=== PATIENT | male | born 1965 | race Caucasian/White ===

== ENCOUNTER 2020-08-13 06:32 | Outpatient (CLI) | payer OTHER, SELFPAY ==
--- NOTE | ~2020-08-13 | MR_ITS ---
EXAMINATION: MR abdomen wo/w con INDICATION: Kidney mass TECHNIQUE: Coronal SSFSE ARC, WATER:coronal LAVA-FLEX, Coronal 2D FIESTA FatSat, Axial SSFSE BH ARC, Axial 3D DualEcho BH, Axial SSFSE-IR, Axial DWI b=500, Axial 2D FIESTA FatSat, pre and dynamic postco ntrast Axial LAVA ARC, postcontrast Coronal In and Opposed phase LAVA FLEX COMPARISON: None available CONTRAST: Multihance, 16 cc FINDINGS: The heart size is normal. There is a 4 mm cyst in the right hepatic lobe. The spleen, pancr eas, gallbladder, and adrenal glands are normal. There is a 1.3 cm T1 isointense, mixed T2 signal int ensity mass in the posteromedial aspect of the right mid kidney which demonstrates enhancement of the solid components after contrast administration. The left kidney is unremarkable. No pathologically e nlarged abdominal lymph nodes are identified. There are no dilated loops of bowel. There is a 1.7 cm T1 isointense, mildly T2 hyperintense, nonenhancing lesion in the left aspect of the T9 vertebral bod y. IMPRESSION: 1. 1.3 cm right kidney mass concerning for renal cell carcinoma. 2. 1.7 cm lesion of the T9 vertebral body which likely represents an atypical hemangioma, particularl y given the relatively small size of the right kidney mass and absence of other known malignancy like ly to metastasize to bone. Reviewed, dictated and finalized at location A. IMPRESSION: 1. 1.3 cm right kidney mass concerning for renal cell carcinoma. 2. 1.7 cm lesion of the T9 vertebral body which likely represents an atypical h emangioma, particularly given the relatively small size of the right kidney mas s and absence of other known malignancy likely to metastasize to bone.
[2020-08-13 07:08] LABS: Estimated Glomerular Filt Rate > 60
== END 2020-08-13 06:33 | disposition home or self-care (01) ==
LOC: ANHIMG 06:44
PROVIDERS: PCP Urology; Visit Provider Urology
DX: N28.89 Other specified disorders of kidney and ureter (principal)
CPT/HCPCS: 74183; A9577

== ENCOUNTER 2020-08-27 10:26 | Outpatient (CLI) | payer OTHER, SELFPAY ==
--- NOTE | ~2020-08-27 | US_ITS ---
EXAMINATION: US retroperitoneal comp DATE: 08/27/2020 11:10 INDICATION: Kidney mass. TECHNIQUE: Multiple ultrasound grayscale images of the kidneys were obtained. COMPARISON: Abdomen MRI 08/13/2020 FINDINGS: The right kidney measures 11.7 x 7.1 x 5.3 cm. The left kidney measures 10.3 x 5.4 x 5.6 cm. The kidn eys demonstrate normal parenchymal echogenicity. There is a 13 mm hyperechoic and isoechoic mass in r ight kidney. There is no hydronephrosis. The bladder is normal. IMPRESSION: 1. 13 mm right kidney mass correlating with the enhancing mass seen by MRI suspicious for renal cell carcinoma. Reviewed, dictated and finalized at location A. IMPRESSION: 1. 13 mm right kidney mass correlating with the enhancing mass seen by MRI dwayne picious for renal cell carcinoma.
== END 2020-08-27 10:27 | disposition home or self-care (01) ==
PROVIDERS: Visit Provider Urology
DX: N28.89 Other specified disorders of kidney and ureter (principal)
CPT/HCPCS: 76770

== ENCOUNTER 2020-12-17 14:36 | Outpatient (CLI) | payer OTHER, SELFPAY ==
--- NOTE | 2020-12-17 14:39 | ECG_ITS ---
Measurements Intervals [place] Rate: 53 P: 44 [place]: 197 QRS: 13 QRSD: 105 T: 38 QT: 403 QTc: 381 Interpretive Statements SINUS BRADYCARDIA INCOMPLETE RIGHT BUNDLE BRANCH BLOCK DELAYED PRECORDIAL R/S TRANSITION BORDERLINE ECG Electronically Signed On 12-17-2020 14:53:10 ACCIDENT INVESTIGATOR by Asa Vivas D.O.
[2020-12-17 15:07] LABS: Basophils Absolute Auto 0.1 K/mm3 (0.0-0.1); Basophils Percent Auto 1.1 % (0.2-1.2); Eosinophils Absolute Auto 0.1 K/mm3 (0-0.3); Eosinophils Percent Auto 0.8 % (0-4.4); Hematocrit 50.1 % (42.0-52.0); Hemoglobin 17.1 g/dL (14.0-18.0); Immature Granulocyte Absolute 0.01 K/mm3 (0.00-0.031); Immature Granulocyte Percent A 0.2 % (0-0.5); Lymphocytes Absolute Auto 1.39 K/mm3 (0.9-3.2); Lymphocytes Percent Auto 22.3 % (18.3-44.2); Mean Corpuscular HGB Conc 34.1 g/dl (32-36); Mean Corpuscular Volume 90.9 fl (80-100); Mean Platelet Volume 9.8 fl (7.4-10.4); Monocytes Absolute Auto 0.5 K/mm3 (0.1-0.6); Monocytes Percent Auto 7.6 % (2.6-8.5); Neutrophils Absolute Auto 4.2 K/mm3 (1.3-6.7); Platelet Count Result 242 k/mm3 (150-375); Red Blood Count 5.51 M/mm3 (4.6-6.20); Red Cell Distribution Width 12.1 % (11.5-14.5); White Blood Count 6.2 K/mm3 (4.5-10.0)
[2020-12-17 15:15] LABS: Anion Gap 2 mmol/L (8-16); Blood Urea Nitrogen 14 mg/dL (9-20); Calcium 9.1 mg/dL (8.4-10.2); Carbon Dioxide 32 mmol/L (22-30); Chloride 105 mmol/L (98-107); Estimated Glomerular Filt Rate > 60; Glucose 113 mg/dL (75-110); INR 0.9; Potassium 3.9 mmol/L (3.4-5.0); Prothrombin Time 13.2 Seconds (11.1-14.7); Sodium 139 mmol/L (137-145)
[2020-12-17 15:16] LABS: Partial Thromboplastin Time 31.5 SECONDS (22.3-36.8)
== END 2020-12-17 14:37 | disposition home or self-care (01) ==
LOC: ANHSURGERY 14:39
PROVIDERS: PCP Family Medicine; Visit Provider Urology
DX: C67.9 Malignant neoplasm of bladder, unspecified (principal); I10 Essential (primary) hypertension; Z01.812 Encounter for preprocedural laboratory examination; I45.10 Unspecified right bundle-branch block
CPT/HCPCS: 36415; 80048; 85025; 85610; 85730; 87086; 93005

== ENCOUNTER → 2020-12-21 05:49 | Outpatient (CLI) | payer OTHER, SELFPAY ==
[2020-12-21 19:10] LABS: SARS-CoV-2 RNA PCR Negative
== END ==
PROVIDERS: PCP Family Medicine; Visit Provider Urology
DX: Z01.812 Encounter for preprocedural laboratory examination (principal); Z20.822 Contact with and (suspected) exposure to COVID-19
CPT/HCPCS: C9803; U0003; U0005

== ENCOUNTER 2020-12-24 00:43 | Day surgery (SDC) | payer OTHER, SELFPAY ==
[2020-12-17 13:16] VITALS: BMI 25.0
[2020-12-24 11:28] VITALS: BMI 25.4
[2020-12-24 11:29] VITALS: BP 108/74; PULSE 53; RESP 16; TEMP 36.8; O2SAT 100
[2020-12-24] MEDS: LACTATED RINGERS 1,000 ML 30 ML IV CONT (11:47)
[2020-12-24 11:53] LABS: Glucose Point of Care 110 (65-105)
--- NOTE | 2020-12-24 12:01 | WPDANESEPPF ---
Anes - Initial Pre Proc Eval Procedure: Operation Date: 12/24/20 13:00 Proposed Procedures p Cystoscopy Bladder Biopsy - Arnulfo Rincon MD s Trans Urethral Resection Bladder Tumor - Arnulfo Rincon MD Date/Time: 12/24/20 12:01 Surgeon: Arnulfo Rincon MD Pre Op Diagnosis: Bladder CA Patient Data Age: 55 Gender: M Height: 6 ft Weight: 84.9 kg Last Vital Signs Temp 98.3 F 12/24/20 11:29 Pulse 53 L 12/24/20 11:29 Resp 16 12/24/20 11:29 BP 108/74 12/24/20 11:29 Pulse Ox 100 12/24/20 11:29 Allergies Allergy/AdvReac Type Severity Reaction Status Date / Time No Known Allergies Allergy Verified 12/24/20 11:12 Home Medications Medication Instructions Recorded Confirmed Type empagliflozin-metformin [Synjardy 1 tablet PO DAILY 12/24/20 12/24/20 History XR] lisinopril 20 mg PO HS 12/24/20 12/24/20 History rosuvastatin 10 mg PO HS 12/24/20 12/24/20 History vortioxetine [Trintellix] 10 mg PO HS 12/24/20 12/24/20 History Laboratory Tests 12/24/20 11:45 POC Capillary Glucose 110 mg/dl mg/dl (65-105) Patient hx anesthesia problems: none Family hx anesthesia problems: none PMFSH Past Medical History Medical History (Updated 12/24/20 @ 12:01 by Ezequiel Diaz MD) Bladder tumor Diabetes Hyperlipidemia Hypertension Social History Social History Smoking status: Never smoker Living arrangements: with family Gender identity (if verbalized by the patient): Male Spiritual care concerns: No Anes - Eval Final PreProcedure Day of Procedure 12/24/20 12:01 Patient weight: normal Heart: regular rate and rhythm Lungs: clear to auscultation Airway: Mallampati scale class II Neurological: alert and oriented Last oral intake: >/= 8 hours ASA classification: III Emergent: no Anesthetic plan: proceed Anesthesia type and monitoring: general LMA and standard monitoring Informed Consent: The patient's anesthetic plan and its attendant risks and benefits were discussed with the patient/family/POA. Questions were solicited and answers provided to the satisfaction of the patient/family/POA.
--- NOTE | 2020-12-24 13:16 | WPDHPUPDATE1 ---
History and Physical Update Update Date/Time: 12/24/20 13:16 History and Physical has been reviewed, including an updated exam of the patient. There are NO changes in the patient's condition. Risks, benefits, and alternatives have been discussed and questions answered. Patient agrees to proceed with procedure.
[2020-12-24] MEDS: ceFAZolin 2 GM/D5W 50 ML 2 GM/50 ML BAG IVPB (13:43)
[2020-12-24] MEDS: LIDOCAINE HCL 2% GEL UROJET 10 ML PKG MUCOUS MEM (14:14)
--- NOTE | 2020-12-24 14:17 | PM.PROC ---
Procedure Note - Detailed Date of procedure: 12/24/20 Pre-op diagnosis: Bladder CA Post-op diagnosis: same Procedure performed: Cystoscopy with bladder biopsy and fulguration. Combined size of tumors medium-3 distinct tumors adding up to 2 cm. Description of procedure: Patient is taken the operative suite and correctly identified. Once anesthesia was obtained he was placed in dorsal lithotomy position prepped and draped usual sterile fashion. Nineteen Arabic scope was inserted the bladder. He has approximately 3 lesions noted near the dome of the bladder. Using a cold cup biopsy we retrieve these. We then fulgurated the base. There was good hemostasis at termination procedure. 2% viscous lidocaine was inserted into urethra. Patient is taken recovery room stable condition. Will call for path results in 1 week's time. The Anesthesia: GLMA Surgeon: Arnulfo Rincon MD Drains: No Packing: No Pathology: yes Complications: No immediate complications Condition: stable Disposition: PACU
[2020-12-24 14:21] VITALS: BP 96/61; PULSE 56; RESP 16; TEMP 36.4; O2SAT 98
[2020-12-24 14:29] LABS: Glucose Point of Care 104 (65-105)
[2020-12-24 14:35] VITALS: BP 105/72; PULSE 78; RESP 20; O2SAT 98
[2020-12-24 14:48] VITALS: BP 111/66; PULSE 55
[2020-12-24 15:20] VITALS: BP 114/64; PULSE 52
== END 2020-12-24 15:45 | disposition home or self-care (01) ==
PROVIDERS: PCP Family Medicine; Visit Provider Urology
PROC: 0TBB8ZX Excision of Bladder, Via Natural or Artificial Opening Endoscopic, Diagnostic (ICD-10-PCS; CPT 52204; principal; 2020-12-24 13:00)
DX: C67.1 Malignant neoplasm of dome of bladder (principal); I10 Essential (primary) hypertension; E78.5 Hyperlipidemia, unspecified; E11.9 Type 2 diabetes mellitus without complications; Z79.84 Long term (current) use of oral hypoglycemic drugs
CPT/HCPCS: 52204; 82948; 88305; A9270; J0690; J2250; J2405; J2704; J3010; J7120

== ENCOUNTER 2021-12-10 07:52 | Outpatient (CLI) | payer OTHER, SELFPAY ==
[2021-12-10 09:12] LABS: Basophils Absolute Auto 0.1 K/mm3 (0.0-0.1); Eosinophils Absolute Auto 0.1 K/mm3 (0-0.3); Eosinophils Percent Auto 1.8 % (0-4.4); Hematocrit 50.8 % (42.0-52.0); Hemoglobin 17.4 g/dL (14.0-18.0); Immature Granulocyte Absolute 0.01 K/mm3 (0.00-0.031); Immature Granulocyte Percent A 0.2 % (0-0.5); Lymphocytes Percent Auto 32.1 % (18.3-44.2); Mean Corpuscular HGB Conc 34.3 g/dl (32-36); Mean Corpuscular Hemoglobin 30.5 pg (26-34); Mean Corpuscular Volume 89.1 fl (80-100); Mean Platelet Volume 10.4 fl (7.4-10.4); Monocytes Absolute Auto 0.4 K/mm3 (0.1-0.6); Neutrophils Absolute Auto 2.8 K/mm3 (1.3-6.7); Neutrophils Percent Auto 56.9 % (45.5-73.1); Platelet Count Result 202 k/mm3 (150-375); Red Cell Distribution Width 12.2 % (11.5-14.5)
[2021-12-10 09:26] LABS: Anion Gap 7 mmol/L (8-16); Blood Urea Nitrogen 14 mg/dL (9-20); Calcium 9.5 mg/dL (8.4-10.2); Carbon Dioxide 28 mmol/L (22-30); Chloride 103 mmol/L (98-107); Estimated Glomerular Filt Rate > 60; Glucose 131 mg/dL (65-110); Sodium 138 mmol/L (137-145)
[2021-12-10 09:51] LABS: INR 0.9; Prothrombin Time 12.2 Seconds (11.1-14.7)
[2021-12-10 09:52] LABS: Partial Thromboplastin Time 31.1 SECONDS (22.3-36.8)
== END 2021-12-10 07:53 | disposition home or self-care (01) ==
LOC: ANHSURGERY 07:58
PROVIDERS: PCP Family Medicine; Visit Provider Urology
DX: C67.9 Malignant neoplasm of bladder, unspecified (principal); Z01.818 Encounter for other preprocedural examination
CPT/HCPCS: 36415; 80048; 85025; 85610; 85730; 87086

== ENCOUNTER 2021-12-16 00:37 | Day surgery (SDC) | payer OTHER, SELFPAY ==
[2021-12-03 14:43] VITALS: BMI 25.7
--- NOTE | 2021-12-03 14:46 | PC.NURSE ---
Report to the Outpatient Waiting Room, entrance under the green pavilion located off [facility], at time _0800_ on date _12/16/21_. OR Time: _1000_. - You will be asked a series of questions to screen for COVID 19 for your protection. - A mask is required within the hospital. - No visitors are allowed at this time. Preoperative COVID Testing Requirements: Patients may have clear liquids (water, carbonated beverages, clear teas, apple juice) until 3 hours prior to surgery with a maximum of 20 ounces. - No food from midnight until time of surgery Take the following medications with a SIP of water the morning of surgery: _TRINTELLIX_ Medications to discontinue per physician _N/A__ Please no make-up, nail libyan, hairspray, perfume, deodorant, or body powder the day of surgery. No jewelry (including any body piercings) or valuables the day of surgery, leave them at home. Please take a shower or bath the night before, or the morning of, surgery with an antibacterial soap. Wear comfortable, loose fitting clothing. Children are encouraged to wear pajamas. - Jewelry must be removed prior to entering the operating room. Rings and piercings that are not removed may be cut off. - The hospital will not accept responsibility for valuables. - Please leave all valuables, including medications, at home the day of surgery. If you are going home after surgery, a licensed delivery driver must drive you home. - NO public transportation without another adult. - We recommend that an adult stay with you for 24 hours following discharge. - We also recommend that you do not drive, make important decision, drink alcoholic beverages, or take any drugs that were not prescribed by your health care provider for at least 24 hours after your discharge time. Follow any additional instructions given to you from your surgeon. Telephone instructions given to ____PT and asked if any additional questions and then verbalized understanding. Patient advised to call surgeon office or pre surgery nurse liaison [phone] if any additional questions.
[2021-12-16] VITALS (7 sets, daily range): BP systolic 96–141; BP diastolic 71–82; PULSE 45–59; RESP 8–20; TEMP 36.1–36.4; O2SAT 99–100
[2021-12-16] MEDS: LACTATED RINGERS 1,000 ML 30 ML IV CONT (07:10)
[2021-12-16 07:28] LABS: Glucose Point of Care 120 mg/dl (65-105)
--- NOTE | 2021-12-16 07:30 | WPDHPUPDATE1 ---
History and Physical Update Update Date/Time: 12/16/21 07:30 History and Physical has been reviewed, including an updated exam of the patient. There are NO changes in the patient's condition. Risks, benefits, and alternatives have been discussed and questions answered. Patient agrees to proceed with procedure. Proceed with cysto, bladder biopsy, possible turbt
--- NOTE | 2021-12-16 07:59 | WPDANESEPPF ---
Anes - Initial Pre Proc Eval Procedure: Operation Date: 12/16/21 08:30 Proposed Procedures p Cystoscopy, Bladder Biopsy - Arnulfo Rincon MD s Trans Urethral Resection of Bladder Tumor with Fulguration - Arnulfo Rincon MD Date/Time: 12/16/21 07:59 Surgeon: Arnulfo Rincon MD Pre Op Diagnosis: [place] neoplasm of Bladder Wall Patient Data Age: 56 Gender: M Height: 1.83 m Weight: 88.4 kg Last Vital Signs Temp 36.4 C 12/16/21 07:32 Pulse 54 L 12/16/21 07:32 Resp 20 12/16/21 07:32 BP 112/80 12/16/21 07:32 Pulse Ox 100 12/16/21 07:32 Allergies Allergy/AdvReac Type Severity Reaction Status Date / Time No Known Allergies Allergy Verified 12/16/21 07:17 Home Medications Medication Instructions Recorded Confirmed Type Synjardy XR 1 tablet PO QAM 12/24/20 12/16/21 History Trintellix 10 mg PO QAM 12/24/20 12/16/21 History lisinopril 20 mg PO QAM 12/24/20 12/16/21 History rosuvastatin 10 mg PO QAM 12/24/20 12/16/21 History Laboratory Tests 12/16/21 07:25 POC Capillary Glucose 120 mg/dl H mg/dl (65-105) Patient hx anesthesia problems: none Family hx anesthesia problems: none Results Review: All pre-operative results and documents have been reviewed as part of the pre-operative evaluation. [facility] Past Medical History Medical History Bladder tumor Diabetes Hyperlipidemia Hypertension Surgical History Surgical History (Updated 12/16/21 @ 07:59 by Natan Ivy MD) Hx of cystoscopy Social History Social History Smoking status: Never smoker Second hand tobacco smoke exposure: No Alcohol intake: current Drinks per week: 14 Substance use: never Substance use type: does not use Living arrangements: with family Gender identity (if verbalized by the patient): Male Spiritual care concerns: No Anes - Eval Final PreProcedure Day of Procedure 12/16/21 07:59 Patient weight: overweight Heart: regular rate and rhythm Lungs: clear to auscultation Airway: Mallampati scale class II Neurological: alert and oriented Last oral intake: >/= 8 hours ASA classification: III Emergent: no Anesthetic plan: proceed Anesthesia type and monitoring: general LMA and standard monitoring Results Review: All pre-operative results and documents have been reviewed as part of the pre-operative evaluation. Informed Consent: The patient's anesthetic plan and its attendant risks and benefits were discussed with the patient/family/POA. Questions were solicited and answers provided to the satisfaction of the patient/family/POA.
[2021-12-16] MEDS: ceFAZolin 2 GM/D5W 50 ML 2 GM/50 ML BAG IVPB (08:31)
[2021-12-16] MEDS: LIDOCAINE HCL 2% GEL UROJET 10 ML PKG MUCOUS MEM (08:59)
--- NOTE | 2021-12-16 09:01 | W.PM.PROC2 ---
Procedure Note - Detailed Date of Procedure 12/16/21 Pre-op Diagnosis [place] neoplasm of Bladder Wall Post-op Diagnosis same Procedure Performed Cystoscopy, transurethral section of bladder tumor medium size 3-5 cm area, fulguration Surgeon Arnulfo Rincon MD Anesthesia general Description of Procedure Patient is taken the operative suite and correctly identified. Once anesthesia was obtained was placed in dorsal lithotomy position and prepped and draped usual sterile fashion. Twenty-four Jamaican resectoscope sheath was inserted in the bladder. Patient was noted to have approximately 3-4 tumors along the dome area. Largest measuring approximately a cm. These were resected with the base fulgurated. He also had some irregularity on the floor lateral to the right ureteral orifice. We resected some of this tissue for diagnosis. We also fulgurated the base. There was good hemostasis at termination procedure. 2% viscous lidocaine was inserted urethra patient is taken recovery room stable condition. Patient is to call for results in 1 weeks time. Drains No Packing No Pathology yes Complications No immediate complications Condition stable Disposition PACU
[2021-12-16 09:20] LABS: Glucose Point of Care 126 mg/dl (65-105)
--- NOTE | 2021-12-16 09:43 | SUR.PHASEI ---
Simple mask removed at 0942.
== END 2021-12-16 11:07 | disposition home or self-care (01) ==
PROVIDERS: PCP Family Medicine; Visit Provider Urology
PROC: 0TCB8ZZ Extirpation of Matter from Bladder, Via Natural or Artificial Opening Endoscopic (ICD-10-PCS; CPT 52352; principal; 2021-12-16 08:30)
PROC: 0TBB8ZZ Excision of Bladder, Via Natural or Artificial Opening Endoscopic (ICD-10-PCS; CPT 52235; 2021-12-16 08:30)
DX: C67.1 Malignant neoplasm of dome of bladder (principal); C67.0 Malignant neoplasm of trigone of bladder; R31.0 Gross hematuria; E11.9 Type 2 diabetes mellitus without complications; E78.5 Hyperlipidemia, unspecified; I10 Essential (primary) hypertension
CPT/HCPCS: 52235; 82948; 88305; A9270; J0690; J1100; J2250; J2405; J2704; J3010; J7120

== ENCOUNTER 2022-09-03 07:37 | Outpatient (CLI) | payer OTHER, SELFPAY ==
--- NOTE | 2022-09-03 07:59 | ECG_ITS ---
Measurements Intervals [place] Rate: 55 P: 24 [place]: 190 QRS: -6 QRSD: 113 T: 11 QT: 423 QTc: 405 Interpretive Statements SINUS BRADYCARDIA INCOMPLETE RIGHT BUNDLE BRANCH BLOCK DELAYED PRECORDIAL R/S TRANSITION BASELINE ARTIFACT- I, III, AVR, AVL, V3-V4, V6 BORDERLINE ECG COMPARED TO ECG 12/17/2020 15:15:03 NO SIGNIFICANT CHANGES Electronically Signed On 09-03-2022 9:13:55 CDT by Asa Vivas D.O.
[2022-09-03 08:37] LABS: Basophils Absolute Auto 0.1 K/mm3 (0.0-0.1); Basophils Percent Auto 1.2 % (0.2-1.2); Eosinophils Absolute Auto 0.1 K/mm3 (0-0.3); Eosinophils Percent Auto 1.6 % (0-4.4); Hematocrit 51.8 % (42.0-52.0); Hemoglobin 17.6 g/dL (14.0-18.0); Immature Granulocyte Absolute 0.03 K/mm3 (0.00-0.031); Immature Granulocyte Percent A 0.6 % (0-0.5); Lymphocytes Absolute Auto 1.72 K/mm3 (0.9-3.2); Lymphocytes Percent Auto 33.8 % (18.3-44.2); Mean Corpuscular Hemoglobin 30.4 pg (26-34); Mean Corpuscular Volume 89.6 fl (80-100); Mean Platelet Volume 10.1 fl (7.4-10.4); Monocytes Absolute Auto 0.5 K/mm3 (0.1-0.6); Monocytes Percent Auto 8.8 % (2.6-8.5); Neutrophils Absolute Auto 2.8 K/mm3 (1.3-6.7); Platelet Count Result 207 k/mm3 (150-375); Red Blood Count 5.78 M/mm3 (4.6-6.20); Red Cell Distribution Width 12.3 % (11.5-14.5); White Blood Count 5.1 K/mm3 (4.5-10.0)
[2022-09-03 08:45] LABS: Anion Gap 13 mmol/L (8-16); Blood Urea Nitrogen 14 mg/dL (9-20); Carbon Dioxide 28 mmol/L (22-30); Chloride 98 mmol/L (98-107); Estimated Glomerular Filt Rate > 60; Glucose 104 mg/dL (65-110); Potassium 4.1 mmol/L (3.4-5.0); Sodium 139 mmol/L (137-145)
[2022-09-03 08:47] LABS: Partial Thromboplastin Time 31.5 SECONDS (22.3-36.8); Prothrombin Time 12.7 Seconds (11.1-14.7)
== END 2022-09-03 07:38 | disposition home or self-care (01) ==
LOC: ANHSURGERY 07:41
PROVIDERS: PCP Family Medicine; Visit Provider Urology
DX: N28.89 Other specified disorders of kidney and ureter (principal); E11.9 Type 2 diabetes mellitus without complications; I10 Essential (primary) hypertension; Z01.818 Encounter for other preprocedural examination; I45.10 Unspecified right bundle-branch block
CPT/HCPCS: 36415; 80048; 85025; 85610; 85730; 87086; 93005

== ENCOUNTER 2022-09-08 01:26 | Day surgery (SDC) | payer OTHER, SELFPAY ==
[2022-09-02 16:33] VITALS: BMI 25.9
--- NOTE | 2022-09-02 16:38 | PC.NURSE ---
Report to the Outpatient Waiting Room, entrance under the green pavilion located off [facility], at time 9:30 on date 09/08/22. Planned Procedure Time: 11:30. Time changes happen often and if your time is changed the preop area will call you the afternoon before. - You and your visitor will be asked to self-screen and do not enter if you have any COVID symptoms. - We encourage only one visitor and NO visitors under age 16 are allowed at this time. Your visitor will receive communication by the phone number that is given day of service. - The patient visitor is requested to social distance or may leave the building when not with patient due to restrictions. - A mask is OPTIONAL within the hospital. Patients may have clear liquids (water, carbonated beverages, clear teas, apple juice) until 3 hours prior to surgery (8:30) with a maximum of 20 ounces. - No food from midnight until time of surgery Take the following medications with a SIP of water the morning of surgery: TRINTELLIX Medications to discontinue per physician: N/A Date to take last dose: N/A Please no make-up, nail setswana, hairspray, perfume, deodorant, or body powder the day of surgery. No jewelry (including any body piercings) or valuables the day of surgery, leave them at home. Please take a shower or bath the night before, or the morning of, surgery with an antibacterial soap. Wear comfortable, loose fitting clothing. - Jewelry must be removed prior to entering the operating room. Rings and piercings that are not removed may be cut off. - The hospital will not accept responsibility for valuables. - Please leave all valuables, including medications, at home the day of surgery. If you are going home after surgery, a licensed race car driver must drive you home. - NO public transportation without another adult. - We recommend that an adult stay with you for 24 hours following discharge. - We also recommend that you do not drive, make important decision, drink alcoholic beverages, or take any drugs that were not prescribed by your health care provider for at least 24 hours after your discharge time. Follow any additional instructions given to you from your surgeon. If you or anyone in your household have experienced Covid symptoms in the past week, please notify your surgeon or the nurse liaison at the phone number below for possible testing. Telephone instructions given to PT - JONATHAN ORTIZ and asked if any additional questions and then verbalized understanding. Patient advised to call surgeon office or pre surgery nurse liaison [phone] if any additional questions.
--- NOTE | ~2022-09-08 | XR_ITS ---
EXAMINATION: XR retrograde pyelo w/stent RT DATE: 09/08/2022 11:33 INDICATION: Renal mass. Cystoscopy, right retrograde pyelogram and ureteral stent placement. TECHNIQUE: 4 fluoroscopic images of the abdomen and pelvis were obtained during procedure performed b naseem Rincon. Radiologist was not present for the imaging or procedure. The amount of fluoroscopy t tye used during this procedure was 0.4 minutes. COMPARISON: None. FINDINGS: There is mild dilation of the distal right ureter medially approximately short narrowing at the dista lmost ureter likely at the ureterovesicular junction but with smooth mucosal margins. No other stenos is, filling defects or urothelial irregularities identified along the right ureter or in the right re nal collecting system. Final images demonstrate placement of a right internal ureteral stent with loo ps formed in the right renal pelvis and in the bladder. IMPRESSION: 1. Nonspecific focal narrowing of the distalmost right ureter likely at the ureterovesicular junction but with smooth mucosal margins. See procedure note for further detail. 2. Right internal ureteral stent placement in expected position. Reviewed, dictated and finalized at location A. BOX OPERATOR IMPRESSION: 1. Nonspecific focal narrowing of the distalmost right ureter likely at the ure terovesicular junction but with smooth mucosal margins. See procedure note for further detail. 2. Right internal ureteral stent placement in expected position.
--- NOTE | 2022-09-08 10:18 | P.PNAN_ITS ---
Anes - Initial Pre Proc Eval Procedure: Operation Date: 09/08/22 11:30 Proposed Procedures p Trans Urethral Resection Bladder Tumor with Resection of Right Ureteral Orifice - Arnulfo Rincon MD s Cystoscopy, Right Ureteroscopy, Right Retrograde Pyelogram, Right Stent Placement - Arnulfo Rincon MD Date/Time: 09/08/22 10:18 Surgeon: Arnulfo Rincon MD Pre Op Diagnosis: Renal Mass, Bladder Ca Patient Data Age: 57 Gender: M Height: 1.83 m Weight: 86.64 kg Allergies Allergy/AdvReac Type Severity Reaction Status Date / Time No Known Allergies Allergy Verified 09/02/22 16:32 Home Medications Medication Instructions Recorded Confirmed Type empagliflozin 10 mg-metformin ER 1 tablet PO QAM 12/24/20 09/02/22 History 1,000 mg tablet,extended release 24hr (Synjardy XR) lisinopril 20 mg tablet 20 mg PO QAM 12/24/20 09/02/22 History rosuvastatin 10 mg tablet 10 mg PO QAM 12/24/20 09/02/22 History vortioxetine 10 mg tablet 10 mg PO QAM 12/24/20 09/02/22 History (Trintellix) Patient hx anesthesia problems: none Family hx anesthesia problems: none Results Review: All pre-operative results and documents have been reviewed as part of the pre- operative evaluation. [facility] Past Medical History Medical History Bladder tumor Diabetes Hyperlipidemia Hypertension Surgical History Surgical History Hx of cystoscopy Social History Social History Smoking status: Never smoker Second hand tobacco smoke exposure: No Alcohol intake: current Drinks per week: 14 Substance use: never Substance use type: does not use Living arrangements: with family Gender identity (if verbalized by the patient): Male Spiritual care concerns: No Anes - Eval Final PreProcedure Day of Procedure 09/08/22 10:18 Patient weight: normal Heart: regular rate and rhythm Lungs: clear to auscultation Airway: Mallampati scale class II Neurological: alert and oriented Last oral intake: >/= 8 hours ASA classification: III Emergent: no Anesthetic plan: proceed Anesthesia type and monitoring: general LMA and standard monitoring Results Review: All pre-operative results and documents have been reviewed as part of the pre- operative evaluation. Informed Consent: The patient's anesthetic plan and its attendant risks and benefits were discussed with the patient/family/POA. Questions were solicited and answers provided to the satisfaction of the patient/family/POA.
[2022-09-08 10:27] VITALS: BP 124/82; PULSE 56; RESP 14; TEMP 36.6; O2SAT 100
[2022-09-08] MEDS: LACTATED RINGERS 1,000 ML 30 ML IV CONT (10:30)
--- NOTE | 2022-09-08 10:40 | WPDHPUPDATE1 ---
History and Physical Update Update Date/Time: 09/08/22 10:40 History and Physical has been reviewed, including an updated exam of the patient. There are NO changes in the patient's condition. Risks, benefits, and alternatives have been discussed and questions answered. Patient agrees to proceed with procedure.
[2022-09-08] MEDS: ceFAZolin 2 GM/D5W 50 ML 2 GM/50 ML BAG IVPB (10:56)
[2022-09-08] MEDS: LIDOCAINE HCL 2% GEL UROJET 10 ML PKG MUCOUS MEM (11:22)
[2022-09-08 11:32] LABS: Glucose Point of Care 110 mg/dl (65-105)
--- NOTE | 2022-09-08 11:36 | P.OP_ITS ---
Procedure Note - Detailed Date of Procedure 09/08/22 Pre-op Diagnosis Renal Mass, Bladder Ca Post-op Diagnosis Same Procedure Performed Cystoscopy, right retrograde pyelogram, right ureteroscopy, transurethral resection of bladder tumor with unroofing of right ureteral orifice, right ureteral stent placement 6 Barbadian contour stent Surgeon Arnulfo Rincon MD Anesthesia General Description of Procedure Patient is taken to the operative suite correctly identified. Once anesthesia was obtained was placed in dorsal lithotomy position and prepped and draped usual sterile fashion. Twenty-two Barbadian scope was inserted the bladder. He does have some lateral lobe hypertrophy and an elevated bladder neck. Bladder itself was inspected in its entirety. The left orifice is normal anatomic position. The right ureteral orifice has irregularity overlying it. We took a rigid ureteral scope inserted into the orifice. It was noted that he had a little bit of narrowing just proximal to the intramural ureter with some dilatation of the ureter proximal to that. Pyelogram was performed which confirmed it. There were no tumors noted. I then resected the ureteral orifice and sent the tissue for analysis. A 6 Barbadian contour stent was then placed with the proximal end coiled in the renal pelvis and the distal in the bladder. We fulgurated the base of the resection as well as some of the bladder neck area which was oozing. There appeared to be good hemostasis at termination procedure. 2% viscous lidocaine was inserted into the urethra patient is taken recovery stable condition. He is to call for path results in a week. Will plan on removing the stent in 6 weeks. Drains Yes Packing No Pathology Yes Complications No immediate complications Condition Stable Disposition PACU
[2022-09-08 11:42] VITALS: BP 128/94; PULSE 52; RESP 12; TEMP 36; O2SAT 100
[2022-09-08 11:55] VITALS: BP 143/92; PULSE 45; RESP 12; O2SAT 100
[2022-09-08 12:10] VITALS: BP 138/88; PULSE 53; RESP 12; O2SAT 100
[2022-09-08 12:22] VITALS: BP 145/89; PULSE 48; RESP 12
[2022-09-08 12:33] LABS: Glucose Point of Care 101 mg/dl (65-105)
[2022-09-08 12:50] VITALS: BP 148/81; PULSE 48; RESP 12
[2022-09-08] MEDS: oxyCODONE HCL (*CRX) 5 MG TAB IR PO (12:58)
== END 2022-09-08 13:05 | disposition home or self-care (01) ==
PROVIDERS: PCP Family Medicine; Visit Provider Urology
PROC: 0TBB8ZZ Excision of Bladder, Via Natural or Artificial Opening Endoscopic (ICD-10-PCS; CPT 52234; principal; 2022-09-08 11:30)
PROC: (CPT 52352; 2022-09-08 11:30)
DX: C67.6 Malignant neoplasm of ureteric orifice (principal); E11.9 Type 2 diabetes mellitus without complications; E78.5 Hyperlipidemia, unspecified; I10 Essential (primary) hypertension; Z79.84 Long term (current) use of oral hypoglycemic drugs
CPT/HCPCS: 52234; 74420; 82948; 88305; A9270; C1758; C1769; C2617; J0690; J1100; J2405; J2704; J3010; J7120